=== PATIENT | male | born 1955 | race Two or more races ===

== ENCOUNTER 2020-07-18 10:48 | Outpatient (CLI) | payer OTHER | END 2020-07-18 10:56 | disposition home or self-care (01) | LOC: SONOGRAMA 10:48 | PROVIDERS: ATTEND Internal Medicine | DX: E04.1 Nontoxic single thyroid nodule (principal); E04.2 Nontoxic multinodular goiter ==

== ENCOUNTER 2025-01-21 13:04 | Outpatient (CLI) | payer OTHER | END 2025-01-21 13:09 | disposition home or self-care (01) | LOC: RAD 13:04 | PROVIDERS: ATTEND Physical Medicine & Rehabilitation Hospice and Palliative Medicine | DX: M25.561 Pain in right knee (principal); M25.562 Pain in left knee; M76.51 Patellar tendinitis, right knee; M76.52 Patellar tendinitis, left knee ==